=== PATIENT | female | born 1995 | race Hispanic/Latino ===

== ENCOUNTER 2022-01-03 22:32 | Inpatient (IN) | payer SELFPAY ==
[~2022-01-03] VITALS: Ht 167.6 cm; Wt 88.9 kg
[2022-01-03] MEDS ORDERED: DILTIAZEM HCL 5 MG/ML 5 ML VIAL IV STA (22:34)
[2022-01-03 22:44] LABS: BASOPHILS % 0.3 % (0.0-1.0); EOSINOPHILS # (AUTO) 0.1 (0.0-0.4); EOSINOPHILS % 1.6 % (0.0-6.0); HEMATOCRIT 45.5 % (34.2-44.1); HEMOGLOBIN 14.9 g/dL (12.0-16.0); LYMPHOCYTES # (AUTO) 1.9 (1.0-3.2); LYMPHOCYTES % 25.1 % (18.0-39.1); MEAN CORPUSCULAR HEMOGLOBIN 28.1 pg (28-32); MEAN CORPUSCULAR HGB CONC 32.7 g/dL (31-35); MEAN CORPUSCULAR VOLUME 85.8 fL (81-99); MONOCYTES # (AUTO) 0.6 (0.2-0.8); MONOCYTES % 7.8 % (4.4-11.3); NEUTROPHILS # (AUTO) 4.8 (2.1-6.9); NEUTROPHILS % 64.8 % (38.7-80.0); PLATELET COUNT 246 x10e3/uL (140-360); RED CELL DISTRIBUTION WIDTH 12.6 % (11.7-14.4)
[2022-01-03] MEDS ORDERED: ENOXAPARIN SODIUM INJ 100 MG/ML SYR SC ONE ×2 (22:45→23:08)
[2022-01-03] MEDS ORDERED: AMIODARONE HCL 150 MG/100 ML BAG IV ONE (22:45)
[2022-01-03] MEDS ORDERED: AMIODARONE 900MG 500 ML IV ONE (22:45)
[2022-01-03] MEDS ORDERED: SODIUM CHLORIDE 0.9% 1000ML 1,000 ML IV ONE (22:45)
[2022-01-03] MEDS ORDERED: DILTIAZEM HCL VIAL 5 ML ONE (22:54)
[2022-01-03 23:02] LABS: ALBUMIN 4.5 g/dL (3.5-5.0); ALBUMIN/GLOBULIN RATIO 1.1 (0.8-2.0); ANION GAP 16.6 mmol/L (8-16); CALCIUM 9.5 mg/dL (8.4-10.2); CREATININE, SERUM 0.73 mg/dL (0.57-1.11); POTASSIUM 3.6 mmol/L (3.5-5.1)
[2022-01-03] MEDS ORDERED: AMIODARONE HCL 100 ML IV ONE (23:04)
[2022-01-03 23:09] LABS: CREATINE KINASE MB 0.6 ng/mL (0-5.0)
[2022-01-03 23:10] LABS: CLARITY,URINE CLOUDY (CLEAR); COLOR,URINE YELLOW (YELLOW)
[2022-01-03 23:11] LABS: AMPHETAMINES SCREEN,URINE NEGATIVE (NEGATIVE); BENZODIAZEPINES SCREEN,URINE NEGATIVE (NEGATIVE); KETONES,URINE NEGATIVE (NEGATIVE); LEUKOCYTE ESTERASE ,URINE NEGATIVE (NEGATIVE); NITRITE,URINE NEGATIVE (NEGATIVE); PHENCYCLIDINE SCREEN,URINE NEGATIVE (NEGATIVE); PROTEIN,URINE DIPSTICK NEGATIVE (NEGATIVE); URINE UROBILINOGEN 0.2 mg/dL (0.2 - 1)
[2022-01-03 23:25] LABS: BACTERIA,URINE FEW /HPF; EPITHELIAL CELLS,URINE FEW /LPF; RBC,URINE 0-5 /HPF (0-5)
[2022-01-04] VITALS (12 sets, daily range): BP systolic 93–128; BP diastolic 64–82
[2022-01-04 08:22] LABS: CREATINE KINASE MB 0.6 ng/mL (0-5.0)
[2022-01-04 11:53] LABS: CHOL/HDL RATIO 5.8 (3.0-3.6)
[2022-01-04] MEDS ORDERED: ENOXAPARIN SODIUM INJ 100 MG/ML SYR SC SCH ×2 (12:00→15:00)
[2022-01-04 14:50] LABS: CREATINE KINASE 60 IU/L (29-168)
[2022-01-04] MEDS: FAMOTIDINE 20 MG TAB PO SCH (16:13)
[2022-01-04] MEDS ORDERED: AMIODARONE HCL 200 MG TAB PO SCH (21:00)
[2022-01-04] MEDS: METOPROLOL SUCCINATE 25 MG TAB XL PO SCH (21:05)
[2022-01-05 00:08] VITALS: BP 110/69
[2022-01-05 04:00] VITALS: BP 103/57
[2022-01-05 04:59] LABS: CHOL/HDL RATIO 6.2 (3.0-3.6)
[2022-01-05 07:09] LABS: ALBUMIN 3.9 g/dL (3.5-5.0); BILIRUBIN,DIRECT 0.2 mg/dL (0.0-0.5)
[2022-01-05 07:20] LABS: ANION GAP 15.6 mmol/L (8-16); CALCIUM 8.8 mg/dL (8.4-10.2); CREATININE, SERUM 0.66 mg/dL (0.57-1.11); MAGNESIUM 2.5 MG/DL (1.3-2.1); PHOSPHORUS 3.1 MG/DL (2.3-4.7); POTASSIUM 3.6 mmol/L (3.5-5.1)
[2022-01-05 07:26] LABS: BASOPHILS % 0.3 % (0.0-1.0); EOSINOPHILS # (AUTO) 0.1 (0.0-0.4); EOSINOPHILS % 1.4 % (0.0-6.0); HEMATOCRIT 42.8 % (34.2-44.1); HEMOGLOBIN 13.7 g/dL (12.0-16.0); LYMPHOCYTES # (AUTO) 1.3 (1.0-3.2); LYMPHOCYTES % 20.5 % (18.0-39.1); MEAN CORPUSCULAR HEMOGLOBIN 28.1 pg (28-32); MEAN CORPUSCULAR VOLUME 87.7 fL (81-99); MONOCYTES # (AUTO) 0.5 (0.2-0.8); MONOCYTES % 7.8 % (4.4-11.3); NEUTROPHILS # (AUTO) 4.3 (2.1-6.9); NEUTROPHILS % 69.5 % (38.7-80.0); PLATELET COUNT 236 x10e3/uL (140-360); RED BLOOD COUNT 4.88 x10e6/uL (3.6-5.1); RED CELL DISTRIBUTION WIDTH 13.1 % (11.7-14.4)
[2022-01-05 07:37] LABS: CREATINE KINASE 51 IU/L (29-168)
[2022-01-05] MEDS: FAMOTIDINE 20 MG TAB PO SCH (07:48)
[2022-01-05 07:52] VITALS: BP 121/79
[2022-01-05 08:49] VITALS: BP 114/75
[2022-01-05] MEDS: METOPROLOL SUCCINATE 25 MG TAB XL PO SCH (08:52)
[2022-01-05] MEDS ORDERED: ASPIRIN 325 MG TAB PO SCH (09:00)
[2022-01-05 10:23] VITALS: BP 114/73
[2022-01-05] MEDS ORDERED: ASPIRIN325 MG PO (10:46)
[2022-01-05] MEDS ORDERED: TOPROL XL25 MG PO (10:46)
[2022-01-05] MEDS ORDERED: CEPHALEXIN500 MG PO (10:46)
== END 2022-01-05 12:38 | disposition home or self-care (01) | DRG 309 ==
LOC: ER 22:35 → ERHOLD 01-04 02:54 → ICU 01-04 04:04
PROVIDERS: ADMIT Internal Medicine; ATTEND Internal Medicine
DX: I48.91 Unspecified atrial fibrillation (principal); N39.0 Urinary tract infection, site not specified; E66.9 Obesity, unspecified; Z68.31 Body mass index [BMI] 31.0-31.9, adult; R07.9 Chest pain, unspecified; Z86.16 Personal history of COVID-19; K29.70 Gastritis, unspecified, without bleeding; R74.01 Elevation of levels of liver transaminase levels; E78.5 Hyperlipidemia, unspecified; Z20.822 Contact with and (suspected) exposure to COVID-19
CPT/HCPCS: 36415; 71045; 80048; 80053; 80061; 80076; 80307; 81001; 82550; 82553; 83036; 83735; 84100; 84484; 84702; 85025; 85379; 93005; 93306; 94799; 99284; J0696; J1650; J7030

== ENCOUNTER 2023-07-25 10:11 | Emergency (ER) | payer OTHER ==
[~2023-07-25] VITALS: Ht 167.6 cm; Wt 95.7 kg
[~2023-07-25 10:11] MED LIST: ASPIRIN325 MG PO; CEPHALEXIN500 MG PO; TOPROL XL25 MG PO
[2023-07-25] MEDS: PREDNISONE 20 MG TAB PO ONE (10:54)
[2023-07-25 11:11] VITALS: PULSE 82; RESP 18; O2SAT 96
[2023-07-25 11:12] VITALS: PULSE 82; RESP 18
[2023-07-25] MEDS: ALBUTEROL/IPRATROPIUM 3 ML NEB NEB ONE (11:12)
[2023-07-25 11:57] VITALS: O2SAT 97
[2023-07-25] MEDS ORDERED: PREDNISONE20 MG PO (13:01)
[2023-07-25] MEDS ORDERED: VENTOLIN HFA18 GM INH (13:01)
[2023-07-25] MEDS ORDERED: PREDNISONE 20 MG TAB ONE (19:46)
[2023-07-25] MEDS ORDERED: ALBUTEROL/IPRATROPIUM 3 ML NEB ONE (19:46)
== END 2023-07-25 13:12 | disposition home or self-care (01) ==
LOC: ER 10:31
DX: R50.9 Fever, unspecified (principal); J40 Bronchitis, not specified as acute or chronic; R05.9 Cough, unspecified
CPT/HCPCS: 71045; 94799; 99283; J7512